=== PATIENT | male | born 1960 | race Two or more races ===

== ENCOUNTER 2018-05-31 05:21 | Day surgery (SDC) | payer OTHER ==
[~2018-05-31 05:21] MED LIST: COZAAR100 MG PO; FORTAMET1000 MG PO; GLIPIZIDE XL2.5 MG PO; TOPROL XL50 M1 PO
[2018-05-31] MEDS ORDERED: ULTRACET PO (08:31)
== END 2018-05-31 11:55 | disposition home or self-care (01) ==
LOC: CIR.AMB 05:21 → O/R 08:19 → CIR.AMB 08:45 → AMB-ENDOS 08:45 → O/R 11:55
DX: C20 Malignant neoplasm of rectum (principal)

== ENCOUNTER 2018-09-21 16:35 | Inpatient (IN) | payer OTHER ==
[~2018-09-21] VITALS: Ht 175.3 cm; Wt 72.6 kg
[~2018-09-21 16:35] MED LIST changes: +ULTRACET PO
[2018-10-04] MEDS ORDERED: INTEGRA (13:13)
[2018-10-04] MEDS ORDERED: AVAPRO300 MG PO (15:11)
[2018-10-04] MEDS ORDERED: HYDROCHLOROTHIA25 MG PO (15:12)
[2018-10-11] MEDS ORDERED: INTEGRA CAPSUL1 EACH PO (08:12)
[2018-10-11] MEDS ORDERED: INTEGRA F CAPS1 EACH PO (08:17)
[2018-10-14] MEDS ORDERED: GAS-X125 M1 PO (13:58)
[2018-10-14] MEDS ORDERED: ULTRACET PO (13:58)
[2018-10-14] MEDS ORDERED: LEVSIN/SL0.125 MG SL (13:58)
== END 2018-10-14 14:37 | disposition home or self-care (01) | DRG 330 ==
LOC: SURG 10-11 05:39 → O/R 10-11 05:39 → SURH 10-11 07:00 → SURG 10-11 16:44
PROVIDERS: ADMIT Surgery
PROC: 0DTP4ZZ Resection of Rectum, Percutaneous Endoscopic Approach (ICD-10-PCS; 2018-10-11)
PROC: 0DJD8ZZ Inspection of Lower Intestinal Tract, Via Natural or Artificial Opening Endoscopic (ICD-10-PCS; 2018-10-11)
PROC: 07BB4ZZ Excision of Mesenteric Lymphatic, Percutaneous Endoscopic Approach (ICD-10-PCS; 2018-10-11)
PROC: 0DTN4ZZ Resection of Sigmoid Colon, Percutaneous Endoscopic Approach (ICD-10-PCS; principal; 2018-10-11 07:00)
DX: C20 Malignant neoplasm of rectum (principal); C18.7 Malignant neoplasm of sigmoid colon; R59.0 Localized enlarged lymph nodes; E11.9 Type 2 diabetes mellitus without complications; Z79.4 Long term (current) use of insulin; I10 Essential (primary) hypertension; E78.49 Other hyperlipidemia

== ENCOUNTER 2019-06-14 09:30 | Inpatient (IN) | payer OTHER ==
[~2019-06-14] VITALS: Ht 175.3 cm; Wt 71.7 kg
[~2019-06-14 09:30] MED LIST changes: +AVAPRO300 MG PO; +GAS-X125 M1 PO; +HYDROCHLOROTHIA25 MG PO; +INTEGRA; +INTEGRA CAPSUL1 EACH PO; +INTEGRA F CAPS1 EACH PO; +LEVSIN/SL0.125 MG SL
[2019-06-20] MEDS ORDERED: GLIPIZIDE XL10 MG PO (08:57)
[2019-06-20] MEDS ORDERED: FORTAMET1000 MG PO (08:57)
== END 2019-06-28 12:39 | disposition home or self-care (01) | DRG 348 ==
LOC: O/R 06-20 05:00 → SURH 06-20 05:00 → O/R 06-20 09:30 → SURH 06-20 11:33
PROVIDERS: ADMIT Surgery
PROC: 0DBB4ZZ Excision of Ileum, Percutaneous Endoscopic Approach (ICD-10-PCS; principal; 2019-06-20 15:45)
PROC: 02HV33Z Insertion of Infusion Device into Superior Vena Cava, Percutaneous Approach (ICD-10-PCS; 2019-06-24)
PROC: 30233N1 Transfusion of Nonautologous Red Blood Cells into Peripheral Vein, Percutaneous Approach (ICD-10-PCS; 2019-06-27)
DX: Z43.2 Encounter for attention to ileostomy (principal); D62 Acute posthemorrhagic anemia; K91.840 Postprocedural hemorrhage of a digestive system organ or structure following a digestive system procedure; K94.11 Enterostomy hemorrhage; K62.5 Hemorrhage of anus and rectum; E11.9 Type 2 diabetes mellitus without complications; I10 Essential (primary) hypertension; E78.5 Hyperlipidemia, unspecified; Y83.2 Surgical operation with anastomosis, bypass or graft as the cause of abnormal reaction of the patient, or of later complication, without mention of misadventure at the time of the procedure; Z91.19 Patient's noncompliance with other medical treatment and regimen; Y92.238 Other place in hospital as the place of occurrence of the external cause

== ENCOUNTER 2020-01-12 11:30 | Day surgery (SDC) | payer OTHER ==
[~2020-01-12 11:30] MED LIST changes: +GLIPIZIDE XL10 MG PO
== END 2020-01-12 15:50 | disposition home or self-care (01) ==
LOC: AMB-ENDOS 11:30
PROVIDERS: ATTEND Surgery
DX: K62.89 Other specified diseases of anus and rectum (principal); Z20.828 Contact with and (suspected) exposure to other viral communicable diseases

== ENCOUNTER → 2021-01-31 | Day surgery (SDC) | payer OTHER | END | disposition home or self-care (01) | LOC: ADM 01-28 13:45 → AMB-ENDOS 07:45 | PROVIDERS: ATTEND Surgery | DX: K62.89 Other specified diseases of anus and rectum (principal); Z20.822 Contact with and (suspected) exposure to COVID-19 ==

== ENCOUNTER 2022-04-02 05:30 | Day surgery (SDC) | payer OTHER ==
[2022-04-02] MEDS ORDERED: ULTRACET PO (07:46)
== END 2022-04-02 09:55 | disposition home or self-care (01) ==
LOC: CIR.AMB 05:30
PROVIDERS: ATTEND Surgery
DX: Z85.048 Personal history of other malignant neoplasm of rectum, rectosigmoid junction, and anus (principal); I10 Essential (primary) hypertension; E11.9 Type 2 diabetes mellitus without complications; F17.210 Nicotine dependence, cigarettes, uncomplicated; Z20.822 Contact with and (suspected) exposure to COVID-19